=== PATIENT | male | born 1950 | race Caucasian/White ===

== ENCOUNTER 2017-06-01 10:17 | Day surgery (SDC) | payer BC, MEDICARE, OTHER ==
[2017-05-30 15:16] VITALS: BMI 35.9
[~2017-06-01 10:17] MED LIST: LACTATED RINGERS 1,000 ML IV SCH
[2017-06-01 11:39] VITALS: TEMP 97.9
[2017-06-01] MEDS ORDERED: LIDOCAINE 1% INJ 10MG/ML (20 ML MDV) ONE (11:50)
[2017-06-01] MEDS ORDERED: PROPOFOL 10 MG/ML 20 ML VIAL IV ONE (11:50)
--- NOTE | 2017-06-01 12:08 | P.PCN ---
Date of Procedure: 06/01/17 Procedure(s) Performed: BRIEF HISTORY: Patient is a 66 -year-old pleasant white male, scheduled for an elective colonoscopy as a part of screening for colorectal neoplasia. PROCEDURE PERFORMED: Colonoscopy. PREOPERATIVE DIAGNOSIS: Screening for colon cancer. IV sedation per Anesthesia. PROCEDURE: After informed consent was obtained, the patient, was brought into the endoscopy unit. IV sedation was administered by Anesthesia under continuous monitoring. Digital rectal examination was normal. Initially the Olympus CF- 160 flexible video colonoscope was then inserted in the rectum, gradually advanced into the cecum without any difficulty. Careful examination was performed as the scope was gradually being withdrawn. Ileocecal valve and the appendiceal orifice were visualized and appeared normal. Prep was excellent. Mucosa of the cecum, ascending colon, transverse colon, descending colon, sigmoid colon, and rectum appeared normal. Moderate diffuse diverticulosis seen. Retroflexion was performed in the rectum and no lesions were seen. The patient tolerated the procedure well. IMPRESSION: Normal-appearing colon from rectum to cecum with no evidence of colitis or colorectal neoplasia. Moderate diffuse diverticulosis. RECOMMENDATIONS: Findings of this examination were discussed with the patient as well as his family. He was advised to have a repeat screening colonoscopy in 10 years..
[2017-06-01 12:44] VITALS: BP 136/78; PULSE 74; RESP 16
== END 2017-06-01 12:52 | disposition home or self-care (01) ==
LOC: ORWHC2ENDO 10:17
PROVIDERS: ATTEND Internal Medicine Gastroenterology
DX: Z12.11 Encounter for screening for malignant neoplasm of colon (principal); K57.30 Diverticulosis of large intestine without perforation or abscess without bleeding; K21.9 Gastro-esophageal reflux disease without esophagitis; I10 Essential (primary) hypertension; E78.5 Hyperlipidemia, unspecified; N40.0 Benign prostatic hyperplasia without lower urinary tract symptoms; Z85.528 Personal history of other malignant neoplasm of kidney; Z79.82 Long term (current) use of aspirin; Z79.899 Other long term (current) drug therapy; Z88.1 Allergy status to other antibiotic agents; Z90.5 Acquired absence of kidney
CPT/HCPCS: J2001; J2704; G0121; 45378

== ENCOUNTER → 2018-05-05 | Outpatient (CLI) | payer OTHER ==
--- NOTE | 2018-05-05 12:05 | ECHOS ---
STRESS ECHOCARDIOGRAM INDICATIONS: Chest pain. MEDICATIONS: Atenolol, aspirin BASELINE HEART RATE: 72 BASELINE BLOOD PRESSURE: 110/62 MAXIMUM HEART RATE: 144 MAXIMUM BLOOD PRESSURE: 188/84 85% MPHR: 131 100% MPHR: 154 METS: 7.9 MAXIMUM STAGE REACHED: III TOTAL EXERCISE TIME: 6:30 CLINICAL INFORMATION: Baseline rhythm sinus mechanism, rate 72, normal axis, intervals. Normal electrocardiogram. Baseline blood pressure 110/62 mmHg. Patient exercised on Thompson protocol for 6 minute 30 seconds reaching peak rate of 144 beats per minute which is equal to 93% maximum predicted heart rate. Peak blood pressure 188/84 mmHg. Test was terminated due to fatigue. There was no chest pain. Electrocardiograph monitoring revealed no evidence of diagnostic ischemic ST deviation. FINDINGS: Baseline echocardiogram revealed normal wall thickening motion at peak exercise. There was normal wall motion augmentation with no hypokinesis or dyskinesis. CONCLUSION: 1. Average exercise tolerance with normal electrocardiograh response to exercise. 2. Normal stress echocardiogram with no evidence of stress induced ischemia. MMODL / IJN: [id number] /
== END | disposition home or self-care (01) ==
LOC: RADNMMAIN 10:20
DX: R07.9 Chest pain, unspecified (principal)
CPT/HCPCS: 93351

== ENCOUNTER → 2019-11-02 | Outpatient (CLI) | payer OTHER ==
[~2019-11-02] MED LIST changes: -LACTATED RINGERS 1,000 ML IV SCH; +REGADENOSON 0.4 MG/5 ML SYRINGE IV ONE
--- NOTE | 2019-11-02 13:03 | EST ---
EXERCISE STRESS AGE: 69 SEX: M HT: 5'10" WT: 240 PROTOCOL: Persantine Cardiolite Stress Test HEART RATE REST: 67 BLOOD PRESSURE REST: 94/76 MAXIMUM HEART RATE ACHIEVED: 80 MAXIMUM BLOOD PRESSURE: 104/59 INDICATIONS: Chest pain. CLINICAL INFORMATION: Baseline heart rate 67 beats per minute. Baseline blood pressure 94/76 mmHg. Baseline 12-lead ECG shows normal sinus rhythm with a 0.[address] elevation inferolaterally. Patient received Lexiscan infusion per protocol. No changes on the ECG noted. No arrhythmias noted. Nuclear portion will be reported separately. MMODL / IJN: [id number] /
--- NOTE | 2019-11-02 13:25 | NM ---
EXAMINATION TYPE: NM stress lexiscan cardiolite DATE OF EXAM: 11/02/2019 COMPARISON: NONE HISTORY: Chest pain TECHNIQUE: After the intravenous administration of 9.7 mCi Tc 99m Sestamibi - Cardiolite resting SPE CT images acquired 60 minutes post injection. The patient received 0.4mg Lexiscan, 25.9 mCi Tc 99m Sestamibi - Stress images obtained [address] injection FINDINGS: Review of stress and rest SPECT images demonstrates no distinct perfusion abnormality. Gated analysi s shows normal wall motion with an estimated left ventricular ejection fraction of 61 %. TID is withi n normal limits calculated at 1.0. IMPRESSION: No scintigraphic evidence for reversible ischemia.
== END | disposition home or self-care (01) ==
LOC: RADNMMAIN 08:40
DX: R07.9 Chest pain, unspecified (principal); Z88.1 Allergy status to other antibiotic agents; Z88.8 Allergy status to other drugs, medicaments and biological substances
CPT/HCPCS: 93017; 78452; A9500; J2785

== ENCOUNTER → 2021-05-21 | Outpatient (CLI) | payer OTHER ==
[2021-05-21 11:39] LABS: HGB 16.5 gm/dL (13.0-17.5); MCHC 34.4 g/dL (31.0-37.0); MCV 95.8 fL (80.0-100.0); Platelet Count 359 k/uL (150-450); RDW 12.8 % (11.5-15.5); WBC 10.6 k/uL (3.8-10.6)
[2021-05-21 11:58] LABS: Potassium 4.6 mmol/L (3.5-5.1)
== END | disposition home or self-care (01) ==
LOC: LABPAT 10:34
PROVIDERS: ATTEND Internal Medicine Interventional Cardiology
DX: Z01.812 Encounter for preprocedural laboratory examination (principal); R94.39 Abnormal result of other cardiovascular function study
CPT/HCPCS: 36415; 80051; 82565; 84520; 85027

== ENCOUNTER 2021-05-26 09:18 | Day surgery (SDC) | payer OTHER ==
[~2021-05-26 09:18] MED LIST changes: +ALPRAZolam 0.25 MG TAB PO PRN; +ALPRAZolam 0.5 MG TAB PO PRN; +ASPIRIN 325 MG TAB PO STA; +HEPARIN SODIUM,PORCINE 10,000 UNIT in SODIUM CHLORIDE 0.9% 1,000 ML IRRIGATION PRN; +HEPARIN SODIUM,PORCINE 2,500 UNIT in SODIUM CHLORIDE 0.9% 250 ML IRRIGATION PRN; +NITROGLYCERIN SL TABS 0.4 MG TAB SUBLINGUAL PRN; -REGADENOSON 0.4 MG/5 ML SYRINGE IV ONE; +SODIUM CHLORIDE 0.9% 1,000 ML in EMPTY BAG 1 BAG IV ONE
[2021-05-26] MEDS ORDERED: SODIUM CHLORIDE 0.9% 1,000 ML IV ONE (09:43)
[2021-05-26] MEDS ORDERED: VERAPAMIL 2.5 MG/ML 2 ML AMP ONE (10:12)
[2021-05-26] MEDS ORDERED: LIDOCAINE 1% INJ 10MG/ML (20 ML MDV) ONE (10:12)
[2021-05-26] MEDS: MIDAZOLAM 2 MG/2 ML VIAL IV ONE ×2 (10:23→10:52)
[2021-05-26] MEDS ORDERED: fentaNYL (PF) 50 MCG/ML 2 ML AMP ONE (10:28)
[2021-05-26] MEDS ORDERED: fentaNYL (PF) 50 MCG/ML 2 ML AMP IV ONE (10:30)
[2021-05-26] MEDS ORDERED: LIDOCAINE 1% INJ 10MG/ML (20 ML MDV) SQ ONE (10:32)
[2021-05-26] MEDS ORDERED: LIDOCAINE 1% (PF) 10 MG/ML (30 ML SDV) SQ ONE (10:32)
[2021-05-26] MEDS ORDERED: HEPARIN SODIUM 1,000 UN/ML (10ML VL) ONE (10:33)
[2021-05-26] MEDS ORDERED: VERAPAMIL SYRINGE (5 MG/10 ML) INTRAARTER ONE (10:34)
[2021-05-26] MEDS: NITROGLYCERIN 1000MCG/10ML SYRINGE INTRACORON ONE ×2 (10:45→10:47)
[2021-05-26] MEDS ORDERED: IOPAMIDOL-370 125ML BTL INJ ONE (10:58)
[2021-05-26] MEDS ORDERED: RX INFO: IV CONTRAST WAS GIVEN 1 EACH MISC MISCELLANE PRN (11:09)
[2021-05-26] MEDS ORDERED: SODIUM CHLORIDE 0.9% 1,000 ML IV SCH (11:15)
--- NOTE | 2021-05-26 11:58 | CC ---
CARDIAC CATHETERIZATION REPORT DATE OF PROCEDURE: 05/26/2021 PERFORMING PHYSICIAN: Alex Gomes MD. PROCEDURE PERFORMED: 1. Selective right and left coronary angiogram. 2. Left heart catheterization. INDICATION: Chest discomfort and abnormal myocardial perfusion imaging. COMPLICATIONS: None. LEVEL OF SEDATION: Moderate, with sedation length of 29 minutes. PROCEDURE DESCRIPTION: After obtaining informed consent, the patient was brought to the cardiac quality assurance qa lab technician. The right common femoral artery was cannulated using micropuncture technique. The micropuncture wire passed easily. Then I placed a 6-Czech sheath at the right radial artery. I gave the patient 2 mg of verapamil IA and 8000 units of heparin IV. Selective right and left coronary angiogram was performed using JR4 and JL3.5 catheters. Left heart catheterization was performed using the JR4 catheter, which crossed the aortic valve. Then I did pullback across the valve. The procedure was completed without any complications. SELECTIVE CORONARY ANGIOGRAM: 1. The RCA is a large-caliber vessel. It is a dominant vessel. The RCA has mild disease only. Distally it bifurcates into PDA and PLV branches; both appeared to have mild disease only. 2. The left main is a short left main. It bifurcates into left circumflex and ramus intermedius and left anterior descending artery. 3. The left circumflex is a large-caliber vessel. It is a nondominant vessel. On the initial angiogram it showed that there is a lesion in the proximal left circumflex that appeared to be in the range of 70% to 80% and seemed to be eccentric. After giving nitroglycerin IV, the lesion has improved to about 30% to 40% only. The mid and distal left circumflex appeared to have mild luminal irregularities only. 4. The ramus intermedius is a medium-caliber vessel with mild disease only. 5. The LAD is a medium- to large-caliber vessel with mild disease only as well. It gives rise to a medium-sized diagonal branch which seems to be angiographically normal. 6. HEMODYNAMICS: The LVEDP was about 10 to 12 mmHg without significant gradient across the aortic valve. CONCLUSION: 1. Intermediate lesion involving the proximal left circumflex with a component of spasm. The lesion has improved after nitroglycerin intracoronary from 80% to 50%. 2. Mild disease involving the right coronary artery. 3. Normal LVEDP. POSTPROCEDURE MANAGEMENT: Medical treatment and follow up with the patient. MMNELIDA / IJN: [id number] /
[2021-05-26 15:28] VITALS: BP 126/72; PULSE 52; RESP 16
== END 2021-05-26 15:14 | disposition home or self-care (01) ==
LOC: CATHCVL 09:18
PROVIDERS: ATTEND Internal Medicine Interventional Cardiology
DX: I25.10 Atherosclerotic heart disease of native coronary artery without angina pectoris (principal)
CPT/HCPCS: 93458; 87635; C1769 ×2; C1887; C1894; J2250; J2001; J3010; J1644; Q9967

== ENCOUNTER → 2023-02-18 | Outpatient (CLI) | payer OTHER ==
[2023-02-18 21:20] LABS: Appearance,Urine Clear (Clear); Bilirubin,Urine Negative (Negative); Blood,Urine Negative (Negative); Color,Urine Yellow (Yellow); Ketones,Urine Negative (Negative); Nitrite,Urine Negative (Negative); PH, Urine 5.5; Specific Gravity,Urine 1.019 (1.001-1.030)
[2023-02-19 02:27] LABS: HGB 16.6 d/dL (12.0-15.0); MCH 32.3 pg (27.0-32.0); MCHC 32.5 d/dL (32.0-37.0); MCV 99.2 FL (80.0-97.0); Mean Platelet Volume 11.2 FL (9.5-12.2); NRBC Per 100 WBC 0 X 10*3/uL (0.00-0.01); Platelet Count 301 X 10*3/uL (140-440); RBC 5.14 X 10*6/uL (4.40-5.60); RDW 13.3 % (11.5-14.5); WBC 9.68 X 10*3/uL (4.50-10.00)
[2023-02-19 02:28] LABS: Basophils # (A) 0.08 X 10*3/uL (0.00-0.10); Basophils % (A) 0.8 %; Eosinophils # (A) 0.26 X 10*3/uL (0.04-0.35); Eosinophils % (A) 2.7 %; Lymphocytes # (A) 2.26 X 10*3/uL (0.90-5.00); Lymphocytes % (A) 23.3 %; Monocytes # (A) 1.16 X 10*3/uL (0.20-1.00)
[2023-02-19 02:45] LABS: ALT 29 U/L (10-49); AST 33 U/L (14-35); Albumin 4.5 d/dL (3.8-4.9); Alkaline Phosphatase 75 U/L (41-126); BUN/Creat Ratio 12.45 Ratio (12.00-20.00); Blood Urea Nitrogen 13.7 mg/dL (9.0-27.0); Calcium 9.7 mg/dL (8.7-10.3); Carbon Dioxide 20.4 mmol/L (21.6-31.8); Chloride 102 mmol/L (96-109); Globulin 2.5 d/dL (1.6-3.3); Glucose 77 mg/dL (70-110); Potassium 4.6 mmol/L (3.5-5.5); Sodium 137 mmol/L (135-145); Total Bilirubin 0.8 mg/dL (0.3-1.2)
== END | disposition home or self-care (01) ==
LOC: LABPAT 11:54
PROVIDERS: ATTEND Urology
DX: Z01.812 Encounter for preprocedural laboratory examination (principal); C61 Malignant neoplasm of prostate; I51.7 Cardiomegaly; I45.10 Unspecified right bundle-branch block; R94.31 Abnormal electrocardiogram [ECG] [EKG]; R31.29 Other microscopic hematuria
CPT/HCPCS: 80053; 81003; 85025; 87086; 93005

== ENCOUNTER 2023-02-25 05:36 | Day surgery (SDC) | payer OTHER ==
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
[~2023-02-25 05:36] MED LIST changes: -ALPRAZolam 0.25 MG TAB PO PRN; -ALPRAZolam 0.5 MG TAB PO PRN; -ASPIRIN 325 MG TAB PO STA; -HEPARIN SODIUM,PORCINE 10,000 UNIT in SODIUM CHLORIDE 0.9% 1,000 ML IRRIGATION PRN; -HEPARIN SODIUM,PORCINE 2,500 UNIT in SODIUM CHLORIDE 0.9% 250 ML IRRIGATION PRN; +HEPARIN SODIUM,PORCINE/PF 5,000 UNIT/0.5 ML SYRINGE SQ PRN; -NITROGLYCERIN SL TABS 0.4 MG TAB SUBLINGUAL PRN; -SODIUM CHLORIDE 0.9% 1,000 ML in EMPTY BAG 1 BAG IV ONE
[2023-02-25] MEDS ORDERED: ONDANSETRON 4 MG/2 ML VIAL ONE (06:21)
[2023-02-25] MEDS: LACTATED RINGERS 1,000 ML IV SCH (06:25)
[2023-02-25] MEDS ORDERED: LACTATED RINGERS 1,000 ML IV ONE ×2 (06:25→12:43)
[2023-02-25] MEDS ORDERED: DEXAMETHASONE SOD PHOSPHATE 4 MG/ML 1 ML VIAL IVP ONE (06:54)
[2023-02-25] MEDS ORDERED: ONDANSETRON 4 MG/2 ML VIAL IVP ONE (06:54)
[2023-02-25] MEDS ORDERED: HYDROmorphone 0.5 MG/0.5 ML SYRINGE IVP PRN (07:00)
[2023-02-25] MEDS ORDERED: MIDAZOLAM 2 MG/2 ML VIAL IVP ONE (07:03)
[2023-02-25] MEDS ORDERED: fentaNYL (PF) 50 MCG/ML 2 ML AMP IVP ONE ×2 (07:03→07:06)
[2023-02-25] MEDS ORDERED: GLYCOPYRROLATE 0.2 MG/ML 2 ML VIAL ONE (07:08)
[2023-02-25] MEDS ORDERED: SUCCINYLCHOLINE CHLORIDE 200 MG/10 ML VIAL IV ONE (07:08)
[2023-02-25] MEDS ORDERED: MIDAZOLAM 2 MG/2 ML VIAL ONE (07:08)
[2023-02-25] MEDS ORDERED: NEOSTIGMINE 1 MG/ML 10 ML VIAL ONE (07:08)
[2023-02-25] MEDS ORDERED: ROCURONIUM 10 MG/ML (5 ML VIAL) IV ONE (07:08)
[2023-02-25] MEDS ORDERED: diphenhydrAMINE 50 MG/ML 1 ML VIAL ONE (07:08)
[2023-02-25] MEDS ORDERED: HYDROmorphone (PF) 1 MG/ML ONE (07:08)
[2023-02-25] MEDS ORDERED: PHENYLEPHRINE-0.9% NACL SYG 1,000 MCG/10 ML SYRINGE ONE (07:08)
[2023-02-25] MEDS ORDERED: ROPIVACAINE 5 MG/ML 30 ML VIAL ONE (07:08)
[2023-02-25] MEDS ORDERED: fentaNYL (PF) 50 MCG/ML 2 ML AMP ONE (07:08)
[2023-02-25] MEDS ORDERED: LIDOCAINE 2% INJ 20 MG/ML (2 ML VIAL) ONE (07:08)
[2023-02-25] MEDS ORDERED: PROPOFOL 10 MG/ML 20 ML VIAL IV ONE (07:08)
[2023-02-25] MEDS ORDERED: ONDANSETRON 4 MG/2 ML VIAL IVP PRN (07:19)
[2023-02-25] MEDS ORDERED: HYDROmorphone 1 MG/ML 1 ML SYRINGE IVP PRN (07:19)
[2023-02-25] MEDS ORDERED: HYDROcodone/APAP 5-325MG 1 EACH TAB PO PRN (07:21)
--- NOTE | 2023-02-25 07:46 | P.ANPRN ---
Procedure Note - Anesthesia - Nerve Block Performed Bilateral Transversus Abdominis Single Time Out Performed: Yes Date of Procedure: 02/25/23 Procedure Start Time: 07:03 Procedure Stop Time: 07:08 Location of Patient: PreOp Indication: Requested by Surgeon Sedation Type: Awake Preparation: Sterile Prep Position: Supine Needle Types: Pajunk Needle Gauge: 21 Ultrasound used to visualize needle placement: Yes Ultrasound used to observe medication spread: Yes Injectate: Other (see comment) (0.25% Ropivicaine 25 right, 25 ml left) Blood Aspirated: No Pain Paresthesia on Injection Noted: No Resistance on Injection: Normal Image Stored and Saved: Yes Events: Uneventful and Well Tolerated
[2023-02-25] MEDS ORDERED: BUPIVACAINE (PF) 0.25% 30 ML VIAL SQ ONE ×2 (07:47→13:51)
[2023-02-25] MEDS ORDERED: ISOSORBIDE MONONITRATE ER 30 MG TAB.ER.24H PO SCH (09:00)
[2023-02-25] MEDS ORDERED: ATORVASTATIN 40 MG TAB PO SCH (09:00)
[2023-02-25] MEDS ORDERED: SODIUM CHLORIDE 0.9% 100 ML BAG ONE (11:04)
[2023-02-25] MEDS ORDERED: ceFAZolin 1,000 MG VIAL ONE (11:04)
--- NOTE | 2023-02-25 14:18 | P.OP ---
Date of Procedure: 02/25/23 Preoperative Diagnosis: Prostate cancer Postoperative Diagnosis: Same Procedure(s) Performed: Robotic-assisted laparoscopic radical prostatectomy, right-sided pelvic lymph node dissection, extensive lysis of adhesion Implants: None Anesthesia: SEDRICKA Surgeon: Ayush Gilmore Estimated Blood Loss (ml): 350 Pathology: other (prostate, bilateral seminal vesicle and right sided pelvic lymph node) Condition: stable Disposition: PACU Indications for Procedure: This is a 72-year-old male with history of [place] 7 prostate cancer. Option of a robotic radical prostatectomy versus radiation therapy was discussed with him in detail. He agreed to proceed with a robotic radical prostatectomy. Aware of the risk which includes but not limited to bleeding, infection, urinary incontinence, erectile dysfunction, injury to nearby organs. Risk of anesthesia was also discussed with him. Aware of risk of cancer recurrence and potential of needing additional treatments. Discussed also the need a postoperative surveillance. Of note he has history of left robotic radical nephrectomy. Discussed with him if there is significant adhesion then I might not be able to perform the surgery and at that point he'll require radiation therapy. He understood all the risk and agreed to proceed Operative Findings: Extensive adhesions along the left side, significant amount of sigmoid diverticulosis Description of Procedure: After preoperative antibiotics were started, the patient was taken to the operating room. Anesthesia was induced and the patient was placed in a low lithitomy position, with adequate padding of the pressure points, shoulders, back, legs and arms. He was then prepped and draped in the standard fashion. A critical pause was performed using two patient identifiers. A 16F guevara catheter was placed to gravity drainage. Attempted to obtain pneumoperitoneum using a Veress needle, but I was not able to obtain an adequate drop test, thus a gel point was placed. At this point a incision was made along the midline, the subcutaneous tissue was dissected down using cautery. Next the fascia was dissected and identified, the fascia was incised sharply. Next access was obtained to the peritoneal cavity, patient had some adhesions along the left midline which was swept down using finger dissection. At this time the gel point was placed. A robotic-assisted trocar was placed on the right, patient had significant amount of adhesion involving the left side using the laparoscopic scissors adhesions was taken down until I was able to place 2 additional robotic trochars on that side. At this time the robot was docked, After the patient was placed in the trendelenberg position, the robot was then docked to the 8mm robotic ports and then each robotic arm and tower was checked in relation to the patient's legs and hands to avoid inadvertent compression. The further lysis of adhesion was performed robotically, of note patient had extensive sigmoid diverticulosis and the colon was adherent to the left pelvic sidewall with the with the diverticuli been stuck to the sidewall. I was able to partially mobilize the colon in order to be able to drop down the bladder but I was not able to further mobilize the colon due to concern of getting into the diverticuli thus decision was made not to proceed with left-sided pelvic lymph node dissection. Given the concern for potential bowl injury. In total greater than 90 minutes was spent lysing adhesions . An inverted U-shaped incision began laterally to the left medial umbilical ligament and extended high across the midline to the right umbilical ligament. The limbs of the "U" extended to the level of the vasa on both sides. We next developed the preperitoneal space and the space of Retzius. Cautery was used to dissected the bladder away from the prostate. After the anterior bladder neck was incised and the bladder entered the the posterior bladder neck was exposed and the ureteral orifces identified. The posterior bladder neck was then incised and dissected away from the prostate. The vas and the seminal vesicles were now exposed and dissected to their insertions into the prostate and were not spared. The posterior layer of the Denonvillier's fascia was incised to enter el the plane between prostate and perirectal fat. Each lateral pedicle was controlled with vessel sealer. Partial nerve preservation was performed bilaterally. The puboprostatic ligament was incised where it inserted into the apex of the prostate and a plane between urethra and dorsal venous complex developed to expose the anterior urethral surface. The anterior wall of the urethra was transected with the cut setting a few millimeters distal to the apex of the prostate. The dorsal vein was ligated using 3-0 V lock right obturator and external iliac lymph node packets were carefully dissected after careful visualization of the hypogastric artery and obturator nerve. There was careful attention paid to hemostasis with judicious use of cautery. The urethrovesical anastomosis was performed . the posterior denovillers was reapproximated using 3-0 V lock. A 6 and 9 inch 3-0 V-Lock suture was used to anastomose the urethra and bladder, starting at the 6:00 posterior position. Mucosa was secured in every stitch, to ensure a mucosa to mucosa anastomosis. The stitch was regularly cinched and the anastomosis tightened. Care was taken to not violate the ureteral orifices. The Guevara catheter was advanced, the bladder filled, and the anastomosis was tested, as described above. Anastomsis was watertight at 150 mL The periumbilical fascia was closed with 1-0-PDS suture in running fashion. All ports were closed with a subcuticular 4-0 monocryl and Dermabond. Sponge, instrument, and needle counts were correct at the end of the case x2. All specimens including prostate and lymph nodes were sent to pathology for diagnosis and will be available in a week. The patient tolerated the surgery well and without complication. He awoke without difficulty and was taken to the recovery room in stable condition
[2023-02-25] MEDS: KETOROLAC 15 MG/ML 1 ML VIAL IVP SCH (18:27)
[2023-02-25] MEDS: D5-0.45% NACL WITH KCL 20MEQ/L 1,000 ML IV SCH (19:45)
[2023-02-26] MEDS: HEPARIN SODIUM,PORCINE/PF 5,000 UNIT/0.5 ML SYRINGE SQ SCH ×2 (00:20→08:12)
[2023-02-26] MEDS: KETOROLAC 15 MG/ML 1 ML VIAL IVP SCH ×2 (00:21→06:20)
[2023-02-26] MEDS: D5-0.45% NACL WITH KCL 20MEQ/L 1,000 ML IV SCH (00:22)
[2023-02-26] MEDS: LACTATED RINGERS 1,000 ML IV SCH (00:57)
--- NOTE | 2023-02-26 08:17 | P.PN ---
Subjective Progress Note Date: 02/26/23 Patient is first postoperative day from a robotic-assisted radical nephrectomy. He feels well minimal discomfort. There is some old blood in the catheter. His abdomen is soft. Wound looks good. Objective - Vital Signs Vital signs: Vital Signs Temp 98.1 F 02/26/23 01:28 Pulse 75 02/26/23 01:28 Resp 16 02/26/23 01:28 BP 105/66 02/26/23 01:28 Pulse Ox 94 L 02/26/23 01:28 FiO2 40 02/25/23 14:45 Intake & Output 02/25/23 02/26/23 02/26/23 18:59 06:59 18:59 Intake Total 1950 1500 Output Total 650 400 Balance 1300 1100 Weight 111.3 kg Intake: IV 1950 Intake, IV Titration 1500 Amount D5-0.45% NaCl with KCl 1500 20Meq/l 1,000 ml @ 125 mls/hr IV .Q8H [facility] Rx#: [id number] Output: Urine 300 400 Estimated Blood Loss 350 Other: Voiding Method Indwelling Catheter Assessment and Plan Assessment: Impression: Status post radical prostatectomy robotic-assisted 01/25/23 Recommendations. We'll see how the day goes on as to whether he can be discharged home later today. [place] and we may keep him until tomorrow.
[2023-02-26] MEDS ORDERED: ATORVASTATIN 40 MG TAB PO SCH (09:00)
[2023-02-26] MEDS ORDERED: ISOSORBIDE MONONITRATE ER 30 MG TAB.ER.24H PO SCH (09:00)
[2023-02-26] MEDS ORDERED: PANTOPRAZOLE 40 MG TABLET PO SCH (09:00)
[2023-02-26] MEDS ORDERED: METOPROLOL SUCCINATE (ER) 25 MG TAB.ER.24H PO SCH (09:00)
[2023-02-26 15:20] VITALS: BP 111/64; PULSE 75; RESP 22; TEMP 97.7
== END 2023-02-26 15:20 | disposition home or self-care (01) ==
LOC: OR 05:36 → 4SSUR 17:29 → OR 02-26 15:20
PROVIDERS: ATTEND Urology
DX: C61 Malignant neoplasm of prostate (principal); G89.18 Other acute postprocedural pain; K21.9 Gastro-esophageal reflux disease without esophagitis; I10 Essential (primary) hypertension; E78.5 Hyperlipidemia, unspecified; F10.90 Alcohol use, unspecified, uncomplicated; Z88.0 Allergy status to penicillin; Z87.891 Personal history of nicotine dependence; Z79.899 Other long term (current) drug therapy
CPT/HCPCS: 55866; 38571; 94660; 64488; 86900; 86901; 88305; 86850; 88307; 88309; J2250; J0330; J1200; J1100; J2710; J0690 ×2; J2405; J3010; J1170 ×2; J2795; J1885 ×2; J2370; J2704; J1644 ×2; J2001

== ENCOUNTER 2024-12-06 14:06 | Emergency (ER) | payer OTHER ==
[2024-12-06] MEDS ORDERED: DIPH,PERTUS(ACELL)TETVAC-LF 0.5 ML VIAL IM ONE (14:45)
[2024-12-06] MEDS ORDERED: TOPICAL SKIN ADHESIVE 1 EACH AMP TOPICAL ONE (14:45)
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
[2024-12-06 15:32] LABS: Basophils # (A) 0.1 k/uL (0-0.2); Basophils % (A) 1 %; Eosinophils # (A) 0.3 k/uL (0-0.7); Eosinophils % (A) 3 %; HCT 47.6 % (39.0-53.0); Lymphocytes # (A) 2.2 k/uL (1.0-4.8); Lymphocytes % (A) 20 %; MCHC 33.7 g/dL (31.0-37.0); Mean Platelet Volume 8.3; Monocytes # (A) 1.2 k/uL (0-1.0); Monocytes % (A) 11 %; Neutrophils # (A) 7.1 k/uL (1.3-7.7); Neutrophils % (A) 64 %; Platelet Count 337 k/uL (150-450); RBC 5.01 m/uL (4.30-5.90); RDW 12.1 % (11.5-15.5); WBC 11.1 k/uL (3.8-10.6)
[2024-12-06 15:34] VITALS: RESP 16
[2024-12-06 15:40] LABS: ALT 19 U/L (4-49); AST 22 U/L (17-59); African American GFR (CKD) 89 (>60 ml/min/1.73 sqM); Albumin 4.3 g/dL (3.5-5.0); Alkaline Phosphatase 78 U/L (38-126); Anion Gap 11 mmol/L; Blood Urea Nitrogen 16 mg/dL (9-20); Calcium 9.6 mg/dL (8.4-10.2); Carbon Dioxide 21 mmol/L (22-30); Chloride 107 mmol/L (98-107); Glucose 114 mg/dL (74-99); Non-African American GFR(CKD) 77 (>60 ml/min/1.73 sqM); Potassium 4.3 mmol/L (3.5-5.1); Sodium 139 mmol/L (137-145); Total Protein 7.1 g/dL (6.3-8.2)
[2024-12-06 15:41] LABS: INR 1.1 (<1.2); Prothrombin Time 11.7 sec (10.0-12.5)
--- NOTE | 2024-12-06 15:54 | XR ---
EXAMINATION TYPE: XR chest 2V DATE OF EXAM: 12/06/2024 3:38 PM COMPARISON: Chest radiographs from none CLINICAL INDICATION: Male, 74 years old with history of dizzines; TECHNIQUE: XR chest 2V Frontal and lateral views of the chest. FINDINGS: Lungs/Pleura: There is no evidence of pleural effusion, focal consolidation, or pneumothorax. Pulmonary vascularity: Unremarkable. Heart/mediastinum: Cardiomediastinal silhouette is unremarkable. Musculoskeletal: No acute osseous pathology. Cerebral appearing rib fractures. IMPRESSION: No acute cardiopulmonary disease/process. [facility], , 12/06/2024 3:52 PM
--- NOTE | 2024-12-06 16:06 | CT ---
EXAMINATION TYPE: CT brain sonya wo con DATE OF EXAM: 12/06/2024 COMPARISON: None CLINICAL INDICATION: Male, 74 years old with history of fall; [facility], Fell and hit head on Tuesday. No L OC. Is on thinners. C/O dizziness since. TECHNIQUE: CT scan of the head and cervical spine are performed without contrast. CT DLP: [address] CTDI: mGy Automated exposure control for dose reduction was used. Findings: Head CT: Ventricles, basal cisterns and sulci over convexities are moderately enlarged consistent with moderat e generalized atrophy. There is a remote lacunar infarct in the right caudate nucleus. There is no mass effect or shift of midline structures. There is no acute intra or extra-axial hemorrhage. Posterior fossa including the brainstem, fourth ventricle and cerebellar pontine angles are grossly n ormal. The intraorbital contents appear normal and symmetric. There is mild chronic inflammatory change in t he sphenoid sinus. The mastoid air cells are well aerated. The calvarium is intact. CT cervical spine: Craniovertebral junction relationships and prevertebral soft tissues are normal. The cervical vertebral segments are normal in height and alignment and there is no fracture subluxati on. There is mild disc space narrowing and moderate spondylosis at the C4-5, C5-6 and C6-7 levels indicat ing mild to moderate degenerative disc disease. The facet joints are intact. There is mild to moderate degeneration of the uncovertebral joints at C4-5, C5-6 and C6-7 levels. The bony cervical canal is widely patent. There is moderate bony neuroforaminal encroachment at C5-6 on the right. The paraspinal soft tissues unremarkable. IMPRESSION: 1. Head CT: No acute bleed or mass effect. Moderate generalized atrophy and remote lacunar infarct in the right caudate nucleus 2. CT cervical spine: No acute trauma. Mild to moderate multilevel degenerative disc disease and mild level osteoarthritis of the uncovertebral joints resulting in moderate bony neural foraminal encroac hment at C5-6 on the right. [facility], , 12/06/2024 4:04 PM
[2024-12-06 17:36] LABS: Appearance,Urine Clear (Clear); Bilirubin,Urine Negative (Negative); Blood,Urine Negative (Negative); Color,Urine Yellow; Glucose,Urine (UA) Negative (Negative); Ketones,Urine Negative (Negative); Leukocyte Esterase,Urine Negative (Negative); Mucus,Urine Many /hpf; Nitrite,Urine Negative (Negative); PH, Urine 5.5 (5.0-8.0); Protein,Urine 1+ (Negative); RBC,Urine 2 /hpf (0-5); Specific Gravity,Urine 1.031 (1.001-1.035); Squamous Epithelial Cell,Urine <1 /hpf (0-4); WBC,Urine 1 /hpf (0-5)
[2024-12-06 18:06] VITALS: BP 125/84; PULSE 57; TEMP 98.2
== END 2024-12-06 18:06 | disposition home or self-care (01) ==
LOC: EC 14:06
DX: S00.83XA Contusion of other part of head, initial encounter (principal); R42 Dizziness and giddiness; Z88.0 Allergy status to penicillin; Z87.891 Personal history of nicotine dependence; W19.XXXA Unspecified fall, initial encounter; Y92.009 Unspecified place in unspecified non-institutional (private) residence as the place of occurrence of the external cause
CPT/HCPCS: 36415; 70450; 71046; 72125; 80053; 81001; 84484; 85025; 85610; 93005; 99284